=== PATIENT | female | born 1990 | race Caucasian/White ===

== ENCOUNTER → 2017-02-04 | Outpatient (CLI) | payer OTHER | LOC: HPND 09:48 | PROVIDERS: ATTEND Obstetrics & Gynecology | DX: O35.1XX0 Maternal care for (suspected) chromosomal abnormality in fetus, not applicable or unspecified (principal) | CPT/HCPCS: 76811 ==

== ENCOUNTER → 2017-03-10 | Outpatient (CLI) | payer OTHER | LOC: HPND 08:45 | PROVIDERS: ATTEND Obstetrics & Gynecology | DX: O35.8XX0 Maternal care for other (suspected) fetal abnormality and damage, not applicable or unspecified (principal) | CPT/HCPCS: 76816 ==

== ENCOUNTER 2017-04-20 10:45 | Emergency (ER) | payer OTHER ==
[~2017-04-20] VITALS: Ht 170.2 cm; Wt 68.5 kg
[2017-04-20] MEDS ORDERED: PRENTAB7 (11:04)
--- NOTE | 2017-04-20 12:09 | PD ---
HPI Chief Complaint decreased movement Date Seen: Apr 20, 2017 Time Seen: 12:01 Travel History International Travel<30 Days: No Contact w/Intl Traveler<30Days: No Known Affected Area: No History of Present Illness HPI Patient is a 27-year-old white female at 38 weeks sees the [facility] and presents with decreased movement since yesterday. However since getting in the car the baby has been moving and since she's been here the baby is moving, NST is reactive Weeks Gestation: 38 Para: 0 : 1 History Social History Alcohol Use: No Tobacco Use: No Substance Abuse: No Allergies-Medications (Allergen,Severity, Reaction): Coded Allergies: No Known Allergies (Unverified , 04/20/17) Home Meds Reported Medications Pnv No.95/Ferrous Fum/Folic AC ( Vitamins Tablet) 28 Mg Iron-800 Mcg Tablet 04/20/17 Review of Systems General / Constitutional: No: Fever, Weight Gain, Chills, Other Eyes: No: Diploplia, Blurred Vision, Visual changes, Pain, Photophobia HENT: No: Headaches, Vertigo, Lightheadedness Cardiovascular: No: Irregular Rhythm, Chest Pain or Discomfort, Palpitations, Tachycardia, Syncope, Varicosities, Edema, Cyanosis Respiratory: No: Cough, Short of Breath, Other Gastrointestinal: No: Nausea, Vomiting, Diarrhea Genitourinary: No: Decreased Urinary Output, Oliguria Musculoskeletal: No: Limited ROM, Weakness, Cramping, Edema, Pain Skin: No Rash, No Itching, No Dryness, No Lumps, No Change in Pigmentation, No Change in Nails, No Alopecia, No Lesions Neurologic: No: Weakness, Dizziness, Syncope, Focal Abnormalities, Coordination Problem, Headache, Slurred Speech, Seizures Psychiatric: No: Depression, Suicidal Ideations, Homicidal Ideation Endocrine: No: Heat Intolerance, Cold Intolerance, Polydipsia, Polyuria, Other Physical Exam Narrative GENERAL: Well-nourished, well-developed patient. SKIN: Warm and dry. HEAD: Normocephalic and atraumatic. EYES: No scleral icterus. No injection or drainage. ENT: No nasal drainage noted. Mucous membranes pink. Airway patent. NECK: Supple, trachea midline. No JVD. CARDIOVASCULAR: Regular rate and rhythm without murmurs, gallops, or rubs. RESPIRATORY: Breath sounds equal bilaterally. No accessory muscle use. BREASTS: Bilateral exam showed no masses , no retractions, no nipple discharge. ABDOMEN/GI: Abdomen soft, non-tender, bowel sounds present, no rebound, no guarding Gravid to [-38] weeks size Fundal Height: [38-] GENITOURINARY: External Genitalia: intact and normal in appearance ] Membranes: [intact ] Uterine Contractions: [none-] FHT's: Category: [-1] Baseline: [133-] Reactive: [-yes] Variability: [-mod] Decels: [0-] EXTREMITIES: No cyanosis or edema. BACK: Nontender without obvious deformity. No CVA tenderness. NEUROLOGICAL: Awake and alert. Motor and sensory grossly within normal limits. Five out of 5 muscle strength in all muscle groups. Normal speech. MDM Interpretation(s) This patient is a 27-year-old white female at [address] Monroe at the [facility], she presents for decreased movement however NST is reactive today and the baby is moving here on OB ED Plan Plan to discharge, the patient informed on kick counts and monitor baby's activity. And she is to follow-up with her OB provider Diagnosis Diagnosis: Primary Impression: Decreased movement affecting management of in third trimester Disposition: 01 DISCHARGE HOME Condition: Stable Fred Curran II, MD Apr 20, 2017 12:09
== END 2017-04-20 12:55 | disposition home or self-care (01) ==
LOC: HOBED 10:45
DX: O36.8130 Decreased fetal movements, third trimester, not applicable or unspecified (principal); Z3A.38 38 weeks gestation of pregnancy
CPT/HCPCS: 99284

== ENCOUNTER 2017-05-01 12:38 | Inpatient (IN) | payer OTHER ==
[2017-05-01] VITALS (9 sets, daily range): BP systolic 102–144; BP diastolic 62–91; PULSE 60–79; RESP 12–20; TEMP 97.3–99.1; O2SAT 98–100
[~2017-05-01] VITALS: Ht 170.2 cm; Wt 67.5 kg
[~2017-05-01 12:38] MED LIST: PRENTAB7
--- NOTE | 2017-05-01 14:13 | HHI.HP ---
HPI Date Seen: May 01, 2017 Time Seen: 13:40 Travel History International Travel<30 Days: No Contact w/Intl Traveler<30Days: No Known Affected Area: No History of Present Illness HPI This is a 27-year-old white female para 0000 who is at 40+ weeks. She presented to her doctor today as she was postdates and a biophysical profile and saw that there was low fluid. Her VARGHESE is 1 her biophysical profile score is 2 out of 10. Her cervix is noninducible as it is 1 and long. She is brought to the hospital for observation and delivery. Weeks Gestation: 40 Para: 0 : 1 History Past Medical History Medical History: Denies Significant Hx Obstetric History Obstetric History Para 0000 Past Surgical History Narrative Surgical Augmentation mammoplasty Family History Family History: Negative Social History Alcohol Use: No Tobacco Use: No Substance Abuse: No Allergies-Medications (Allergen,Severity, Reaction): Coded Allergies: No Known Allergies (Unverified , 04/20/17) Home Meds Reported Medications Pnv No.95/Ferrous Fum/Folic AC ( Vitamins Tablet) 28 Mg Iron-800 Mcg Tablet 04/20/17 Physical Exam Narrative GENERAL: Well-nourished, well-developed patient. SKIN: Warm and dry. HEAD: Normocephalic and atraumatic. EYES: No scleral icterus. No injection or drainage. ENT: No nasal drainage noted. Mucous membranes pink. Airway patent. NECK: Supple, trachea midline. No JVD. CARDIOVASCULAR: Regular rate and rhythm without murmurs, gallops, or rubs. RESPIRATORY: Breath sounds equal bilaterally. No accessory muscle use. BREASTS: Bilateral exam showed no masses , no retractions, no nipple discharge. ABDOMEN/GI: Abdomen soft, non-tender, bowel sounds present, no rebound, no guarding Gravid to [39] weeks size Fundal Height: [-] FHT's: Category: [1 ] Baseline: [140] Reactive: Reactive Variability: Good Decels: Variables EXTREMITIES: No cyanosis or edema. BACK: Nontender without obvious deformity. No CVA tenderness. NEUROLOGICAL: Awake and alert. Motor and sensory grossly within normal limits. Five out of 5 muscle strength in all muscle groups. Normal speech. Caprini VTE Risk Assessment Caprini VTE Risk Assessment: Mod/High Risk (score >= 2) Caprini Risk Assessment Model Point Value = 1 Point Value = 2 Point Value = 3 Point Value = 5 Age 41-60 Minor surgery BMI > 25 kg/m2 Swollen legs Varicose veins or History of unexplained or recurrent spontaneous Oral contraceptives or hormone replacement Sepsis (< 1 month) Serious lung disease, including pneumonia (< 1 month) Abnormal pulmonary function Acute myocardial infarction Congestive heart failure (< 1 month) History of inflammatory bowel disease Medical patient at bed rest Age 61-74 Arthroscopic surgery Major open surgery (> 45 min) Laparoscopic surgery (> 45 min) Malignancy Confined to bed (> 72 hours) Immobilizing plaster cast Central venous access Age >= 75 History of VTE Family history of VTE Factor V Leiden Prothrombin [id number] Lupus anticoagulant Anticardiolipin antibodies Elevated serum homocysteine Heparin-induced thrombocytopenia Other congenital or acquired thrombophilia Stroke (< 1 month) Elective arthroplasty Hip, pelvis, or leg fracture Acute spinal cord injury (< 1 month) Prophylaxis Regimen Total Risk Factor Score Risk Level Prophylaxis Regimen 0-1 Low Early ambulation 2 Moderate Order ONE of the following: *Sequential Compression Device (SCD) *Heparin 5000 units SQ BID 3-4 Higher Order ONE of the following medications: *Heparin 5000 units SQ TID *Enoxaparin/Lovenox 40 mg SQ daily (WT < 150 kg, CrCl > 30 mL/min) *Enoxaparin/Lovenox 30 mg SQ daily (WT < 150 kg, CrCl > 10-29 mL/min) *Enoxaparin/Lovenox 30 mg SQ BID (WT < 150 kg, CrCl > 30 mL/min) AND/OR *Sequential Compression Device (SCD) 5 or more Highest Order ONE of the following medications: *Heparin 5000 units SQ TID (Preferred with Epidurals) *Enoxaparin/Lovenox 40 mg SQ daily (WT < 150 kg, CrCl > 30 mL/min) *Enoxaparin/Lovenox 30 mg SQ daily (WT < 150 kg, CrCl > 10-29 mL/min) *Enoxaparin/Lovenox 30 mg SQ BID (WT < 150 kg, CrCl > 30 mL/min) AND *Sequential Compression Device (SCD) Data Data Vital Signs Reviewed: Yes Assessment/Plan Assessment and Plan 1. Intrauterine at 40+ weeks 2. Oligohydramnios her VARGHESE is 1 3. Poor biophysical profile with a 2 out of 10. 4. Noninducible cervix and had a long discussion with this patient regarding trial of labor versus proceeding with a section I have recommended a section with VARGHESE of 1 and a poor biophysical profile I do not feel she is a good candidate for a trial of labor. They want some time to think about it and will get back to me in the near future in the meantime we'll monitor the baby continuously. Last ate approximately 3 hours ago. Discharge Planning Routine Dayton Monterroso MD May 01, 2017 14:12
[2017-05-01] MEDS ORDERED: LACTATED RINGER'S 1000 ML INJ 1,000 ML IV ONE (14:52)
[2017-05-01 15:13] LABS: BASOPHIL % 0.3 % (0.0-2.0); EOSINOPHIL # 0.3 TH/MM3 (0-0.4); EOSINOPHIL % 3.2 % (0.0-4.0); HEMATOCRIT 34.7 % (35.0-46.0); HEMO FLAGS DIFF FINAL; LYMPH % 20.7 % (9.0-44.0); LYMPHOCYTE # 1.7 TH/MM3 (1.0-4.8); MEAN CORPUSCULAR HEMOGLOBIN 32.8 PG (27.0-34.0); MEAN CORPUSCULAR HGB CONC 34.6 % (32.0-36.0); MONO % 4.9 % (0.0-8.0); NEUT % 70.9 % (16.0-70.0); PLATELET COUNT 200 TH/MM3 (150-450); RED BLOOD COUNT 3.66 MIL/MM3 (4.00-5.30); WHITE BLOOD COUNT 8.4 TH/MM3 (4.0-11.0)
[2017-05-01] MEDS ORDERED: LACTATED RINGER'S 1000 ML INJ 1,000 ML IV SCH ×2 (15:22→22:02)
[2017-05-01 15:23] LABS: BACTERIA, URINE RARE /hpf; BLOOD, URINE NEG (NEG); COMMENT (UR) CULT NOT INDICATED; CULTURE IF INDICATED CULT NOT INDICATED; GLUCOSE,URINE NEG (NEG); KETONE, URINE NEG (NEG); NITRITE,URINE NEG (NEG); PH, URINE 7.5 (5.0-8.5); SQUAMOUS EPITHELIAL CELL URINE 1 /hpf (0-5); URINE COLOR LIGHT-YELLOW (YELLW/STRAW)
[2017-05-01] MEDS ORDERED: ACETAMINOPHEN 1000 MG/100 ML 100 ML IV ONE (15:29)
[2017-05-01] MEDS ORDERED: MORPHINE SULFATE PF 5 MG/10 ML VIAL ONE (15:30)
[2017-05-01] MEDS ORDERED: CITRIC ACID-SODIUM CITRATE LIQ 30 ML UDC PO SCH (16:30)
--- NOTE | 2017-05-01 17:20 | PD.OP ---
Operative Report Date of Surgery: May 01, 2017 Preoperative Diagnosis: Intrauterine at 40+ weeks Oligohydramnios BPP is 2 out of 10 Several decelerations Postoperative Diagnosis: Same Procedure: Primary low transverse section Anesthesia: Spinal Surgeon: Maxi Monterroso M.D. Legal Nurse Consultant(s): None Operation and Findings: Complications none Counts correct Estimated blood loss 500 cc The patient was taken to the operating room. After appropriate level anesthesia , she was placed in the supine position. Intermittent compression hoses were placed. Maharaj catheter was placed, and was draining adequate clear urine. The abdomen was prepped, and draped in the usual sterile fashion. A transverse incision was made through the skin, and carried down through the subcutaneous tissue. The fascia was opened transversely. from the rectus muscles in the midline. The rectus muscles were , and the abdominal cavity was entered. The bladder flap was taken down transversely. A low segment transverse incision was made into the lower uterine segment. The vertex was then delivered. The remainder of the body was then delivered. Cord was doubly clamped and cut. And the handed off to the waiting nurse and staff. The placenta was then manually removed. The uterus was cleaned of excess blood and debris. The uterine incision was then closed using 0 vicryl in a continuous interlocking stitch. This stitch line was then imbricated also using 0 vicryl. Tubes and ovaries were inspected and found to be normal. The uterus which had been previously exteriorized, was placed back into the abdomen. The paracolic gutters were cleaned of excess blood and debris. The incision was inspected and found to be dry. The peritoneal cavity was then closed using 2-0 chromic suture. The muscle bed was inspected and found to be dry. The fascia was then closed using 0 Vicryl suture. The subcutaneous tissue was irrigated. Bleeders were controlled with Bovie. There was no active bleeding. The incision was then closed using in a subcuticular fashion with 4- 0 Monocryl. A dressing was applied. The patient was then transferred to the recovery room in stable condition. Dayton Monterroso MD May 01, 2017 17:20
[2017-05-01] MEDS ORDERED: oxyCODONE/ACETAMINOPHEN 5 MG/325 MG TAB PO PRN ×2 (17:45)
[2017-05-01] MEDS ORDERED: OXYTOCIN 30 UNITS-500ML PREMIX 500 ML IV ONE (17:45)
[2017-05-01] MEDS ORDERED: ACETAMINOPHEN 325 MG TAB PO PRN (17:45)
[2017-05-01] MEDS ORDERED: ONDANSETRON HCL 4 MG/2 ML VIAL IV PUSH PRN (17:45)
[2017-05-01] MEDS ORDERED: DOCUSATE SODIUM 50 MG/SENNA 8.6 MG TAB PO PRN (17:45)
[2017-05-01] MEDS ORDERED: SODIUM CHLORIDE 0.9% FLUSH 10 ML FLUSH IV FLUSH PRN (17:45)
[2017-05-01] MEDS ORDERED: KETOROLAC TROMETHAMINE 30 MG/ML (IVP) VIAL ONE (17:58)
[2017-05-01] MEDS ORDERED: SIMETHICONE 80 MG CHEWABLE TAB PO PRN (18:00)
[2017-05-01] MEDS ORDERED: OXYTOCIN 30 UNITS-500ML PREMIX 500 ML IV SCH (18:00)
[2017-05-01] MEDS ORDERED: ZOLPIDEM TARTRATE 5 MG TAB PO PRN (21:00)
[2017-05-01] MEDS ORDERED: SODIUM CHLORIDE 0.9% FLUSH 10 ML FLUSH IV FLUSH SCH (21:00)
[2017-05-02] MEDS ORDERED: OXYTOCIN 30 UNITS-500ML PREMIX 500 ML IV PRN (03:15)
[2017-05-02 04:00] VITALS: BP 112/78; PULSE 68; RESP 16; TEMP 97.8
[2017-05-02] MEDS: IBUPROFEN 600 MG TAB PO PRN ×3 (05:32→21:04)
[2017-05-02 08:00] VITALS: BP 110/75; PULSE 60; RESP 18; TEMP 97.8; O2SAT 99
[2017-05-02 08:15] VITALS: BP 110/75; PULSE 60; RESP 18; TEMP 97.8; O2SAT 99
[2017-05-02 08:41] LABS: AUTOMATED NEUTROPHIL # 10.2 TH/MM3 (1.8-7.7); BASOPHIL % 0.3 % (0.0-2.0); EOSINOPHIL # 0.1 TH/MM3 (0-0.4); EOSINOPHIL % 0.6 % (0.0-4.0); HEMATOCRIT 32.8 % (35.0-46.0); HEMO FLAGS DIFF FINAL; LYMPH % 14.4 % (9.0-44.0); LYMPHOCYTE # 1.9 TH/MM3 (1.0-4.8); MEAN CELL VOLUME 94.8 FL (80.0-100.0); MEAN CORPUSCULAR HEMOGLOBIN 31.7 PG (27.0-34.0); MEAN CORPUSCULAR HGB CONC 33.5 % (32.0-36.0); MONO % 6.6 % (0.0-8.0); NEUT % 78.1 % (16.0-70.0); PLATELET COUNT 174 TH/MM3 (150-450); RED BLOOD COUNT 3.46 MIL/MM3 (4.00-5.30); RED CELL DISTRIBUTION WIDTH 12.9 % (11.6-17.2); WHITE BLOOD COUNT 13.1 TH/MM3 (4.0-11.0)
[2017-05-02 11:27] VITALS: BP 109/78; PULSE 68; RESP 18; TEMP 98; O2SAT 99
[2017-05-02 15:38] VITALS: BP 111/69; PULSE 84; RESP 19; TEMP 98.1; O2SAT 100
--- NOTE | 2017-05-02 15:57 | HHI.OB ---
Objective Vitals/I&O Vital Signs Date Time Temp Pulse Resp B/P (MAP) Pulse Ox O2 Delivery O2 Flow Rate FiO2 05/02/17 11:27 98.0 68 18 109/78 (88) 99 05/02/17 08:15 97.8 60 18 110/75 (87) 99 05/02/17 08:00 97.8 05/02/17 08:00 60 18 110/75 (87) 99 05/02/17 04:00 97.8 68 16 05/02/17 04:00 112/78 (89) 05/01/17 20:00 97.3 64 18 124/83 (97) 05/01/17 18:45 97.8 62 16 144/91 (108) 05/01/17 18:00 65 18 133/88 (103) 05/01/17 18:00 98 05/01/17 17:45 60 16 123/73 (90) 98 05/01/17 17:30 64 16 102/67 (79) 98 05/01/17 17:15 66 20 119/67 (84) 100 05/01/17 17:00 79 117/62 (80) 05/01/17 17:00 99.1 12 100 05/01/17 16:45 99.1 Result Diagram: 05/02/17 0820 Objective Remarks GENERAL: Well-nourished, well-developed patient. CARDIOVASCULAR: Regular rate and rhythm without murmurs, gallops, or rubs. RESPIRATORY: Breath sounds equal bilaterally. No accessory muscle use. ABDOMEN/GI: Abdomen soft, non-tender, bowel sounds present. Incision: Clean, dry and intact. Fundus: Firm, non-tender at umbilicus. GENITOURINARY: Light to moderate bleeding. EXTREMITIES: No cyanosis or edema, non-tender, without signs of DVT. Medications and IVs Current Medications Medications (Trade) Dose Ordered Sig/Ana Paula Route Start Time Stop Time Status Last Admin Lactated Ringer's 1,000 ml @ 100 mls/hr Q10H IV 05/01/17 22:02 05/02/17 18:01 Oxytocin 500 ml @ 100 mls/hr UNSCH X1 PRN IV 05/02/17 03:15 05/03/17 03:14 (NS Flush) 2 ml BID IV FLUSH 05/01/17 21:00 05/02/17 09:53 (NS Flush) 2 ml UNSCH PRN IV FLUSH 05/01/17 17:45 (Mylicon Chew) 80 mg QID PRN PO 05/01/17 18:00 (Tylenol) 650 mg Q6H PRN PO 05/01/17 17:45 (Motrin) 600 mg Q6H PRN PO 05/01/17 17:45 05/02/17 14:12 (Percocet 5-325 Mg) 1 tab Q4H PRN PO 05/01/17 17:45 (Percocet 5-325 Mg) 2 tab Q4H PRN PO 05/01/17 17:45 (Sheila-Colace) 2 tab Q12H PRN PO 05/01/17 17:45 (Ambien) 5 mg HS PRN PO 05/01/17 21:00 (M-M-R Ii Inj) 0.5 ml ONCE ONCE SQ 05/02/17 16:00 05/02/17 16:01 (Boostrix Inj) 0.5 ml ONCE ONCE IM 05/02/17 16:00 05/02/17 16:01 (Zofran Inj) 4 mg Q6H PRN IV PUSH 05/01/17 17:45 Assessment/Plan Assessment and Plan POD #1 Doing well, Routine care Discharge Planning Routine Dayton Monterroso MD May 02, 2017 15:57
[2017-05-02] MEDS ORDERED: MEASLES, MUMPS, RUBELLA VACCINE 0.5 ML VIAL SQ ONE (16:00)
[2017-05-02] MEDS ORDERED: DIPHTH/TETANUS/ACEL PERTUSSIS (BOOSTER) 0.5 ML VIAL/PFS IM ONE (16:00)
[2017-05-02 20:30] VITALS: BP 115/74; PULSE 75; RESP 16; TEMP 98.8
[2017-05-03] MEDS: IBUPROFEN 600 MG TAB PO PRN ×2 (03:35→10:26)
[2017-05-03 08:05] VITALS: BP 105/70; PULSE 69; RESP 18; TEMP 98.5
--- NOTE | 2017-05-03 11:53 | HHI.OB ---
Subjective Post Operative Day: 2 Remarks Doing well Motrin only for pain Bleeding is normal Ready to go home. Objective Vitals/I&O Vital Signs Date Time Temp Pulse Resp B/P (MAP) Pulse Ox O2 Delivery O2 Flow Rate FiO2 05/03/17 08:05 98.5 69 18 105/70 (82) 05/02/17 20:30 98.8 75 16 05/02/17 20:30 115/74 (88) 05/02/17 15:38 98.1 84 19 111/69 (83) 100 Result Diagram: 05/02/17 0820 Objective Remarks GENERAL: Well-nourished, well-developed patient. CARDIOVASCULAR: Regular rate and rhythm without murmurs, gallops, or rubs. RESPIRATORY: Breath sounds equal bilaterally. No accessory muscle use. ABDOMEN/GI: Abdomen soft, non-tender, bowel sounds present. Incision: Clean, dry and intact. Fundus: Firm, non-tender at umbilicus. GENITOURINARY: Light to moderate bleeding. EXTREMITIES: No cyanosis or edema, non-tender, without signs of DVT. Medications and IVs Current Medications Medications (Trade) Dose Ordered Sig/Ana Paula Route Start Time Stop Time Status Last Admin (NS Flush) 2 ml BID IV FLUSH 05/01/17 21:00 05/02/17 09:53 (NS Flush) 2 ml UNSCH PRN IV FLUSH 05/01/17 17:45 (Mylicon Chew) 80 mg QID PRN PO 05/01/17 18:00 (Tylenol) 650 mg Q6H PRN PO 05/01/17 17:45 05/03/17 10:26 (Motrin) 600 mg Q6H PRN PO 05/01/17 17:45 05/03/17 10:26 (Percocet 5-325 Mg) 1 tab Q4H PRN PO 05/01/17 17:45 (Percocet 5-325 Mg) 2 tab Q4H PRN PO 05/01/17 17:45 (Sheila-Colace) 2 tab Q12H PRN PO 05/01/17 17:45 (Ambien) 5 mg HS PRN PO 05/01/17 21:00 (Zofran Inj) 4 mg Q6H PRN IV PUSH 05/01/17 17:45 Assessment/Plan Assessment and Plan POD #2 Doing well, Routine care Discharge Planning Routine Home today Dayton Monterroso MD May 03, 2017 11:53
[2017-05-03] MEDS ORDERED: IBUP-232 PO (11:56)
[2017-05-03] MEDS ORDERED: OXYC1TAB63 PO (11:56)
--- NOTE | 2017-05-03 11:59 | HHI.DCPOC ---
Discharge Care Plan Diagnosis: (1) Oligohydramnios delivered (2) delivery delivered Report Symptoms to Your Doctor -Temperature above 100.5 degrees -Redness, of incision or excessive or foul smelling drainage -Unusual pain or calf pain -Increased vaginal bleeding -Painful or difficulty urinating -Feelings of extreme sadness or anxiety after 2 weeks Goals to Promote Your Health * To prevent worsening of your condition and complications * To maintain your health at the optimal level Directions to Meet Your Goals Take your medications as prescribed Follow your dietary instruction Follow activity as directed Ensure plenty of rest for recovery Drink fluids for hydration Keep your appointments as scheduled Take your immunizations and boosters as scheduled If your symptoms worsen call your PCP, if no PCP go to Urgent Care Center or Emergency Room Smoking is Dangerous to Your Health. Avoid second hand smoke Call the 24-hour crisis hotline for domestic abuse at Dayton Monterroso MD May 03, 2017 11:59
== END 2017-05-03 12:56 | disposition home or self-care (01) | DRG 766 ==
LOC: H2EA 12:38 → H1EA 18:23
PROVIDERS: ADMIT Obstetrics & Gynecology; ATTEND Obstetrics & Gynecology
PROC: 10D00Z1 Extraction of Products of Conception, Low, Open Approach (ICD-10-PCS; principal; 2017-05-01)
DX: O41.03X0 Oligohydramnios, third trimester, not applicable or unspecified (principal); O48.0 Post-term pregnancy; O76 Abnormality in fetal heart rate and rhythm complicating labor and delivery; Z37.0 Single live birth; Z3A.40 40 weeks gestation of pregnancy
CPT/HCPCS: 80307; 81001; 85025; 86850; 86900; 86901; J0131; J0690; J1885; J2274